=== PATIENT | male | born 1975 | race Caucasian/White ===

== ENCOUNTER 2023-11-26 10:05 | Emergency (ER) | payer OTHER ==
[~2023-11-26] VITALS: Ht 177.8 cm; Wt 100.0 kg
[2023-11-26 10:14] VITALS: BP 144/92
[2023-11-26] MEDS ORDERED: CEPHALEXIN500 M1 PO (10:27)
[2023-11-26 10:30] VITALS: BP 141/102
[2023-11-26] MEDS ORDERED: Diph, Acellular Pertussis, Tet 0.5 ML/VIAL (Tdap) SDV IM ONE (10:30)
[2023-11-26] MEDS ORDERED: MUPIROCIN21 TOP (10:32)
[2023-11-26 10:39] VITALS: BP 144/92
== END 2023-11-26 10:49 | disposition home or self-care (01) | DRG 605 ==
LOC: ED 10:05
DX: S50.812A Abrasion of left forearm, initial encounter (principal); W31.89XA Contact with other specified machinery, initial encounter